=== PATIENT | male | born 1975 | race American Indian/Alaskan Native ===

== ENCOUNTER 2020-11-24 06:23 | Emergency (ER) | payer OTHER ==
[2020-11-24 07:54] VITALS: BP 156/105
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
[2020-11-24] MEDS ORDERED: IBUPROFEN 600 MG TAB PO ONE (08:32)
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
== END 2020-11-24 12:00 | disposition home or self-care (01) ==
LOC: ED 06:23
DX: S22.49XA Multiple fractures of ribs, unspecified side, initial encounter for closed fracture (principal); S01.01XA Laceration without foreign body of scalp, initial encounter; S49.91XA Unspecified injury of right shoulder and upper arm, initial encounter; F17.200 Nicotine dependence, unspecified, uncomplicated; Z79.899 Other long term (current) drug therapy; Z91.041 Radiographic dye allergy status; Y04.8XXA Assault by other bodily force, initial encounter; Y93.89 Activity, other specified; Y92.410 Unspecified street and highway as the place of occurrence of the external cause; Y99.8 Other external cause status
CPT/HCPCS: 70450; 71111; 72125

== ENCOUNTER 2020-12-11 12:29 | Emergency (ER) | payer OTHER ==
[2020-12-11 13:27] VITALS: BP 105/78
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
== END 2020-12-11 16:12 | disposition home or self-care (01) ==
LOC: ED 12:29
DX: L03.811 Cellulitis of head [any part, except face] (principal); F17.200 Nicotine dependence, unspecified, uncomplicated; Z98.890 Other specified postprocedural states; Z79.899 Other long term (current) drug therapy; Z91.041 Radiographic dye allergy status
CPT/HCPCS: 99281